=== PATIENT | female | born 1950 | race Caucasian/White ===

== ENCOUNTER 2017-09-05 07:14 | Emergency (ER) | payer MEDICARE ==
[2017-09-05 07:15] VITALS: BP 134/74; PULSE 78; RESP 14; TEMP 97.7; O2SAT 97
[2017-09-05] MEDS ORDERED: ASPI-516 CHEW (07:38)
[2017-09-05] MEDS ORDERED: TETANUS/DIPHTHERIA TOXOID ADULT 0.5 ML VIAL IM ONE (08:30)
[2017-09-05] MEDS ORDERED: LIDOCAINE HCL 1% 20 ML VIAL INFIL ONE (08:30)
--- NOTE | 2017-09-05 08:48 | PD ---
HPI Chief Complaint: Laceration/Skin Injury Time Seen by Provider: 07:34 Travel History International Travel<30 days: No Contact w/Intl Traveler<30days: No Traveled to known affect area: No History of Present Illness HPI 66-year-old female presents to the emergency Department with complaint of laceration to her left forehead after she "lost [her] footing because her plantar fasciitis is flared up " and her foot was painful causing her to fall this morning. She reports hitting her head on the toilet. Denies loss of consciousness. Reports a laceration to her left forehead. Unknown tetanus status. She said she did feel lightheaded and dizzy afterwards and lay down until her symptoms subsided. She denies headache, lightheadedness, dizziness, nausea, vomiting at this time. Denies neck pain or back pain. Denies chest pain, shortness of breath, abdominal pain. Denies paresthesias, loss of sensation, decreased range of motion, decreased strength all extremities. Denies confusion, disorientation, change in mentation, slurred speech, focal deficits or weakness. Rates pain 3/10. Throbbing sensation. Has not taken any medications or tried any treatments to alleviate her symptoms. No known aggravating or relieving factors. Denies anticoagulants. Takes aspirin daily. Primary care provider is Dr. Agee. Allergies to sulfa. History of plantar fasciitis. Denies other significant past medical history. Has no other medical complaints. No other modifying factors or associated signs and symptoms. [facility] Social History Tobacco Use: No Allergies-Medications (Allergen,Severity, Reaction): Coded Allergies: Sulfa (Sulfonamide Antibiotics) (Verified Allergy, Intermediate, Nausea/ Vomiting, 09/05/17) Reported Meds & Prescriptions Reported Meds & Active Scripts Active Reported Aspirin 81 Mg Chew 81 Mg CHEW DAILY Review of Systems Except as stated in HPI: all other systems reviewed are Neg Physical Exam Narrative GENERAL: Well-nourished, well-developed elderly, female patient, in no acute distress SKIN: Warm and dry. Approximately 2 cm laceration to the left forehead; bleeding controlled; no surrounding erythema, edema, ecchymosis; area without crepitance on palpation. HEAD: Atraumatic. Normocephalic. No facial droop noted. Tongue midline. Finger to nose test normal. EYES: Pupils equal and round at 3 mm with brisk reaction. No scleral icterus. No injection or drainage. PERRLA. EOMI. ENT: Mucosa pink and moist. Airway patent. NECK: Moving freely. Trachea midline. No lymphadenopathy. No midline tenderness on palpation of the cervical spine. CARDIOVASCULAR: Regular rate and rhythm. No murmur appreciated. RESPIRATORY: No accessory muscle use. Clear to auscultation. Breath sounds equal bilaterally. GASTROINTESTINAL: Abdomen soft, non-tender, nondistended. Hepatic and splenic margins not palpable. Bowel sounds are active 4 quadrants. MUSCULOSKELETAL: No obvious deformities. No clubbing. No cyanosis. No edema. NEUROLOGICAL: Awake and alert. Oriented 3. No obvious cranial nerve deficits. Motor grossly within normal limits. Normal speech. No ataxia. No mid -line drift. No upper or lower extremity drift. Moves all extremities. 5/5 strength to all extremities. PSYCHIATRIC: Appropriate mood and affect; insight and judgment normal. Data Data Last Documented VS Vital Signs Date Time Temp Pulse Resp B/P (MAP) Pulse Ox O2 Delivery O2 Flow Rate FiO2 09/05/17 07:15 97.7 78 14 134/74 (94) [address] Brain W/O Iv Contrast(Rout) (09/05/17 ) Tetanus/Diphtheria Tox Adult (Tetanus/Di (09/05/17 08:30) Lidocaine 1% Inj (Xylocaine 1% Inj) (09/05/17 08:30) Ed Discharge Order (09/05/17 09:29) [facility] Medical Decision Making Medical Screen Exam Complete: Yes Emergency Medical Condition: Yes Medical Record Reviewed: Yes Differential Diagnosis Fall, laceration, head injury Narrative Course 66-year-old female with a laceration to her left forehead after mechanical trip and fall this morning. Tetanus updated in the ER. She hit her head on the toilet. Denies loss of consciousness. Denies neck pain or back pain. Patient ambulatory in the ER with a normal gait. Denies anticoagulant therapy. Neuro exam is unremarkable. No focal deficits or weakness. CT head ordered. I offered the patient pain control and she declined. Tetanus ordered. See my procedure note for laceration repair. Instructed patient to return to the emergency department or follow-up with primary care provider in 5-7 days for suture removal. 0927: CT head concludes: Head CT 09/05/17 0000 Signed Impressions: Service Date/Time: Tuesday, September 05, 2017 08:44 - CONCLUSION: 1. No acute intracranial abnormality. Alex Mccormick MD CT head findings discussed with the patient and her . Instructed patient to follow up with primary care provider. Patient verbalizes understanding and agreement with treatment plan. Patient is medically cleared and stable for discharge. Discussed reasons to return to the emergency department. Patient agrees with treatment plan. The patients vital signs are stable and the patient is stable for outpatient follow-up and treatment. Patient discharged home, stable and in no acute distress. Procedures Procedure Narrative LACERATION LOCATION: Left forehead LENGTH: 2 cm NUMBER OF STITCHES/DUKE: 5 simple interrupted sutures REPAIR: The area of the laceration was prepped with Betadine and sterilely draped. The laceration was infiltrated with 1% lidocaine. The wound was copiously irrigated and explored without evidence of foreign body, tendon injury or neurovascular injury. The wound was closed using 6-0 Prolene. This was a single layer repair. A sterile dressing was applied. The patient was advised to keep the dressing clean and dry. Patient tolerated the procedure well. Diagnosis Primary Impression: Fall Qualified Codes: W19.XXXA - Unspecified fall, initial encounter Additional Impressions: Laceration of forehead Qualified Codes: S01.81XA - Laceration without foreign body of other part of head, initial encounter Head injury Qualified Codes: S09.90XA - Unspecified injury of head, initial encounter Referrals: Primary Care Physician Patient Instructions: Care For Your Stitches (ED), Facial Laceration (ED), Fall Prevention for Older Adults (ED), General Instructions, Head Injury (ED) Additional Instructions: Keep area clean and dry Ibuprofen or Tylenol as directed and as needed for pain and inflammation Ice pack to area as needed to decrease pain Return to the emergency department or follow-up with primary care provider in 7 days for suture removal Follow up with primary care provider within 2-4 days Return to the emergency department immediately with worsening of symptoms, particularly if reddened streaks up or down the affected extremity from the suture site, fever, numbness/tingling in the affected extremity, loss of sensation in the affected extremity, severe swelling of the affected Med/Other Pt SpecificInfo: No Change to Meds, No Meds Exist/No RX given Disposition: 01 DISCHARGE HOME Condition: Stable Rassi,Serena K ENDOCRINOLOGY SPECIALIST Sep 05, 2017 08:48
--- NOTE | 2017-09-05 09:03 | RADRPT ---
EXAM DATE/TIME: 09/05/2017 08:44 [facility] COMPARISON: No previous studies available for comparison. INDICATIONS : Fall today, laceration to left forehead. RADIATION DOSE: 39.53 CTDIvol (mGy) MEDICAL HISTORY : None SURGICAL HISTORY : None. ENCOUNTER: Initial ACUITY: 1 day PAIN SCALE: 3/10 LOCATION: cranial TECHNIQUE: Multiple contiguous axial images were obtained of the head. Using automated exposure control and adj ustment of the mA and/or kV according to patient size, radiation dose was kept as low as reasonably a chievable to obtain optimal diagnostic quality images. DICOM format image data is available electro nically for review and comparison. FINDINGS: CEREBRUM: The ventricles are normal for age. No evidence of midline shift, mass lesion, hemorrhage or acute in farction. No extra-axial fluid collections are seen. POSTERIOR FOSSA: The cerebellum and brainstem are intact. The 4th ventricle is midline. The cerebellopontine angle i s unremarkable. EXTRACRANIAL: The visualized portion of the orbits is intact. Small soft tissue hematoma in the left scalp region. SKULL: The calvaria is intact. No evidence of skull fracture. CONCLUSION: 1. No acute intracranial abnormality. Alex Mccormick MD on September 05, 2017 at 8:59 Board Certified Radiologist. This report was verified electronically.
== END 2017-09-05 09:38 | disposition home or self-care (01) ==
LOC: NEPD 07:14
DX: S01.81XA Laceration without foreign body of other part of head, initial encounter (principal); S09.90XA Unspecified injury of head, initial encounter; R42 Dizziness and giddiness; M72.2 Plantar fascial fibromatosis; W01.198A Fall on same level from slipping, tripping and stumbling with subsequent striking against other object, initial encounter; Z79.82 Long term (current) use of aspirin; Z23 Encounter for immunization; Z88.2 Allergy status to sulfonamides
CPT/HCPCS: 12011; 70450; 90471; 90714